=== PATIENT | female | born 2000 | race Caucasian/White ===

== ENCOUNTER → 2021-10-08 | Outpatient (CLI) | payer OTHER ==
--- NOTE | 2021-10-08 10:15 | Diagnostic Imaging Report ---
PROCEDURE: US Gallbladder. INDICATION: Right upper quadrant abdominal pain, diarrhea TECHNIQUE: Multiple grayscale sonographic images were obtained of the right upper quadrant of the abdomen. CORRELATION STUDY: None FINDINGS: LIVER: There is uniform echotexture within the visualized portions of the liver. The main portal vein is patent and with normal direction of flow. Liver size 11.6 cm. GALLBLADDER: The gallbladder demonstrates no definitive shadowing gallstones, abnormal gallbladder wall thickening or pericholecystic fluid. COMMON BILE DUCT: Nondilated at 0.4 cm. AORTA/IVC: Not well visualized. PANCREAS: Visualized portions appearing unremarkable. RIGHT KIDNEY: 10.7 x 4.0 x 3.8 cm. No hydronephrosis. OTHER: None. IMPRESSION: 1. Negative appearing right upper quadrant abdominal ultrasound. Dictated by: Dictated on workstation # [id number]
== END ==
LOC: RAD 09:15
PROVIDERS: ATTEND Nurse Practitioner Family
DX: R10.11 Right upper quadrant pain (principal); R19.7 Diarrhea, unspecified
CPT/HCPCS: 76705

== ENCOUNTER → 2021-10-12 | Outpatient (CLI) | payer OTHER ==
[~2021-10-12] MED LIST: CATHETER FLUSH 10 ML SYR IV PRN
--- NOTE | 2021-10-12 15:15 | Diagnostic Imaging Report ---
INDICATION: Epigastric pain. 5.23 mCi tech 90 9M Choletec was given IV. Following 1 hour of imaging Ensure drink was given. FINDINGS: There is prompt uptake by the liver with normal visualization of the gallbladder. Following fatty meal stimulation the ejection fraction is calculated to be 50% at 1 hour. IMPRESSION: Normal hepatobiliary study with normal gallbladder ejection fraction. Dictated by: Dictated on workstation # [id number]
== END ==
LOC: CARD 12:45
PROVIDERS: ATTEND Nurse Practitioner Family
DX: R10.13 Epigastric pain (principal); R10.11 Right upper quadrant pain; R19.7 Diarrhea, unspecified
CPT/HCPCS: 78227; A9537